=== PATIENT | female | born 1960 | race Caucasian/White ===

== ENCOUNTER 2020-06-12 09:32 | Outpatient (REF) | payer BC, SELFPAY ==
[2020-06-12 11:00] LABS: MANUAL DIFF FLAG NO
[2020-06-12 11:11] LABS: Basophils Absolute Auto 0.1 X10*3/uL (0.0-0.2); Eosinophils Absolute Auto 0.3 X10*3/uL (0.0-0.4); Eosinophils Percent Auto 5.9 % (0-4); Hematocrit 38.9 % (37-47); Hemoglobin 12.7 g/dl (12.0-16.0); Imm Gran Abs Auto 0.01 X10*3/uL (0.00-0.03); Imm Gran Pct Auto 0.2 % (0.0-0.4); Lymphocytes Absolute Auto 1.3 X10*3/uL (1.2-4.9); Lymphocytes Percent Auto 25.1 % (20-40); Mean Corpuscular HGB Conc 32.6 g/dl (31.0-35.0); Mean Corpuscular Hemoglobin 30.3 pg (27.0-33.0); Mean Corpuscular Volume 92.8 fL (80-98); Mean Platelet Volume 10.9 fL (9.4-12.3); Monocytes Absolute Auto 0.7 X10*3/uL (0.1-1.2); Neutrophils Absolute Auto 2.8 X10*3/uL (2.0-8.3); Neutrophils Percent Auto 54.8 % (45-73); Platelet Count 232 X10*3/uL (160-400); Red Blood Count 4.19 X10*6/uL (4.20-5.50); White Blood Count 5.1 X10*3/uL (4.8-10.8)
[2020-06-12 11:37] LABS: Alanine Aminotransferase 13 U/L (0-31); Anion Gap 13 (12-20); Aspartate Amino Transferase 14 U/L (5-31); Blood Urea Nitrogen 20 mg/dL (9-16); Calcium 9.4 mg/dL (8.4-10.2); Carbon Dioxide 27 mmol/L (22-29); Chloride 104 mmol/L (96-108); Cholesterol 155 mg/dL; Estimated Glomerular Filt Rate > 60; Glucose Fasting 102 mg/dL (60-99); HDL Cholesterol 62 mg/dL; LDL Cholesterol Calculated 82 mg/dl; Sodium 140 mmol/L (135-145); Triglycerides 59 mg/dL
[2020-06-12 11:47] LABS: Vitamin D 25-OH Total 29.9 ng/mL (>30)
== END 2020-06-12 09:33 | disposition home or self-care (01) ==
LOC: HO.HMGCLDS 09:32
PROVIDERS: PCP Internal Medicine; Visit Provider Internal Medicine
DX: Z00.01 Encounter for general adult medical examination with abnormal findings (principal); Z78.0 Asymptomatic menopausal state; G43.009 Migraine without aura, not intractable, without status migrainosus; G47.00 Insomnia, unspecified; I10 Essential (primary) hypertension
CPT/HCPCS: 36415; 80048; 80061; 82306; 84450; 84460; 85025

== ENCOUNTER 2020-06-27 16:58 | Outpatient (REF) | payer BC, SELFPAY ==
--- NOTE | 2020-06-27 | MM_ITS ---
EXAMINATION: MM SCREENING DIGITAL BREAST TOMOSYNTHESIS, BILATERAL CLINICAL INFORMATION: Screening. Asymptomatic. The lifetime risk of breast cancer based on the Tyrer-Cuzick Model is 5%. COMPARISON: Mammography: 03/22/2019, 03/13/2018, 03/03/2017 TECHNIQUE: Digital breast tomosynthesis is performed in both the craniocaudal and mediolateral oblique views along with computer-aided detection (CAD). Synthesized 2D images are generated from the tomosynthesis. FINDINGS: The breasts are heterogeneously dense, which may obscure small masses (ACR BI-RADS breast composition Category c). There are no significant masses, abnormal calcifications, or other abnormalities. There are incidental benign grouped dermal calcifications overlying right breast 4:00 position. MM/MM tomosynthesis screening BI IMPRESSION: No mammographic evidence of malignancy. ASSESSMENT: BI-RADS 2: Benign RECOMMENDATION: Routine annual mammography screening. This patient's information was entered into a reminder system with a target due date for their next mammogram.
== END 2020-06-27 16:59 | disposition home or self-care (01) ==
LOC: HO.MAMMO 16:58
PROVIDERS: PCP Internal Medicine; Visit Provider Internal Medicine
DX: Z12.31 Encounter for screening mammogram for malignant neoplasm of breast (principal)
CPT/HCPCS: 77063; 77067

== ENCOUNTER 2021-03-17 | Outpatient (REF) | payer BC, SELFPAY ==
[2021-03-19 11:14] LABS: OBS Int Ctl Valid YES; OBS1 NEGATIVE (NEGATIVE); OBS2 NEGATIVE (NEGATIVE); OBS3 NEGATIVE (NEGATIVE)
== END 2021-03-17 00:01 | disposition home or self-care (01) ==
LOC: HO.LNP
PROVIDERS: Visit Provider Internal Medicine Gastroenterology
DX: R13.10 Dysphagia, unspecified (principal); R10.13 Epigastric pain
CPT/HCPCS: 82270

== ENCOUNTER 2021-03-18 10:04 | Outpatient (REF) | payer BC, SELFPAY | END 2021-03-18 10:05 | disposition home or self-care (01) | LOC: HO.10HDLNP 10:04 | PROVIDERS: Visit Provider Internal Medicine Gastroenterology | DX: Z13.89 Encounter for screening for other disorder (principal) ==

== ENCOUNTER 2021-03-19 09:58 | Outpatient (REF) | payer BC, SELFPAY ==
--- NOTE | ~2021-03-19 | FL_ITS ---
EXAMINATION: FL BARIUM SWALLOW CLINICAL INFORMATION: Dysphagia and epigastric pain COMPARISON: None TECHNIQUE: Barium swallow examination is performed using fluoroscopic evaluation in addition to multiple fluoroscopic spot views. The patient is imaged both upright and prone and using both thick and thin sulfate along with effervescent granules. Barium tablet was also administered. Fluoroscopy time: 1.2 minutes DAP: 3.6 Gycm2 Images: 54 FINDINGS: The swallowing mechanism is normal. No aspiration or penetration is seen. Esophageal motility is normal. There is mucosal irregularity of the esophagus suggestive of esophagitis. The barium tablet passed quickly into the stomach. No mass or hernia is seen. There is mild gastroesophageal reflux. FL/FL barium swallow IMPRESSION: Mucosal irregularity of the esophagus suggestive of esophagitis. Mild gastroesophageal reflux.
== END 2021-03-19 09:59 | disposition home or self-care (01) ==
LOC: HO.XRAY 09:58
PROVIDERS: Visit Provider Internal Medicine Gastroenterology
DX: R13.19 Other dysphagia (principal); R10.13 Epigastric pain
CPT/HCPCS: 74220; 87338

== ENCOUNTER 2021-06-29 12:51 | Outpatient (REF) | payer BC, SELFPAY ==
--- NOTE | ~2021-06-29 | MM_ITS ---
EXAMINATION: MM SCREENING DIGITAL BREAST TOMOSYNTHESIS, BILATERAL CLINICAL INFORMATION: Screening. Asymptomatic. The lifetime risk of breast cancer based on the Tyrer-Cuzick Model is 5%. COMPARISON: Mammography: 06/27/2020, 03/22/2019, 03/13/2018 TECHNIQUE: Digital breast tomosynthesis is performed in both the craniocaudal and mediolateral oblique views along with computer-aided detection (CAD). Synthesized 2D images are generated from the tomosynthesis. FINDINGS: The breasts are heterogeneously dense, which may obscure small masses (ACR BI-RADS breast composition Category c). There are no significant masses, abnormal calcifications, or other abnormalities. There are benign grouped dermal calcifications again noted mid 4:00 right breast. The axilla are unremarkable. Skin contours are smooth. MM/MM tomosynthesis screening BI IMPRESSION: No mammographic evidence of malignancy. ASSESSMENT: BI-RADS 2: Benign RECOMMENDATION: Routine annual mammography screening. This patient's information was entered into a reminder system with a target due date for their next mammogram.
== END 2021-06-29 12:52 | disposition home or self-care (01) ==
LOC: HO.MAMMO 12:51
PROVIDERS: Visit Provider Internal Medicine
DX: Z12.31 Encounter for screening mammogram for malignant neoplasm of breast (principal)
CPT/HCPCS: 77063; 77067

== ENCOUNTER 2021-09-25 08:49 | Outpatient (REF) | payer BC, SELFPAY ==
[2021-09-25 11:19] LABS: MANUAL DIFF FLAG NO
[2021-09-25 11:36] LABS: Basophils Percent Auto 0.5 % (0-2); Eosinophils Absolute Auto 0.2 X10*3/uL (0.0-0.4); Eosinophils Percent Auto 2.5 % (0-4); Hematocrit 42.5 % (37.0-47.0); Hemoglobin 13.6 g/dl (12.0-16.0); Imm Gran Abs Auto 0.02 X10*3/uL (0.00-0.03); Imm Gran Pct Auto 0.3 % (0.0-0.4); Lymphocytes Absolute Auto 1.7 X10*3/uL (1.2-4.9); Lymphocytes Percent Auto 27.6 % (20-40); Mean Corpuscular Hemoglobin 29.6 pg (27.0-33.0); Mean Corpuscular Volume 92.6 fL (80.0-98.0); Mean Platelet Volume 10.7 fL (9.4-12.3); Monocytes Absolute Auto 0.6 X10*3/uL (0.1-1.2); Neutrophils Absolute Auto 3.7 x10*3/uL (2.0-8.3); Neutrophils Percent Auto 60.1 % (45-73); Platelet Count 320 X10*3/uL (160-400); Red Blood Count 4.59 X10*6/uL (4.20-5.50); Red Cell Distribution Width 13.1 % (11.0-16.0); White Blood Count 6.1 X10*3/uL (4.8-10.8)
[2021-09-25 12:07] LABS: Alanine Aminotransferase 18 U/L (0-31); Anion Gap 14 (12-20); Aspartate Amino Transferase 16 U/L (5-31); Blood Urea Nitrogen 18 mg/dL (9-16); Carbon Dioxide 27 mmol/L (22-29); Chloride 105 mmol/L (96-108); Cholesterol 194 mg/dL; Estimated Glomerular Filt Rate > 60; Glucose Fasting 101 mg/dL (60-99); HDL Cholesterol 70 mg/dL; LDL Cholesterol Calculated 108 mg/dl; Potassium 4.5 mmol/L (3.3-5.1); Sodium 141 mmol/L (135-145); Triglycerides 80 mg/dL
[2021-09-25 12:08] LABS: Vitamin D 25-OH Total 21.7 ng/mL (>30)
[2021-09-26 21:13] LABS: Lyme Blot 4.76 index
[2021-10-01 09:05] LABS: Lyme Abs Screen POSITIVE
[2021-10-01 16:01] LABS: 18 KD (IgG) Band REACTIVE; 23 KD (IgG) Band REACTIVE; 23 KD (IgM) Band REACTIVE; 28 KD (IgG) Band NON-REACTIVE; 30 KD (IgG) Band NON-REACTIVE; 39 KD (IgM) Band NON-REACTIVE; 41 KD (IgM) Band REACTIVE; 45 KD (IgG) Band NON-REACTIVE; 58 KD (IgG) Band NON-REACTIVE; 66 KD (IgG) Band NON-REACTIVE; 93 KD (IgG) Band NON-REACTIVE; Lyme IgG Blot Interp NEGATIVE (NEGATIVE); Lyme IgM Blot Interp POSITIVE (NEGATIVE)
== END 2021-09-25 08:50 | disposition home or self-care (01) ==
LOC: HO.HMGCLDS 08:49
PROVIDERS: Visit Provider Internal Medicine
DX: Z00.00 Encounter for general adult medical examination without abnormal findings (principal); G43.009 Migraine without aura, not intractable, without status migrainosus; G47.00 Insomnia, unspecified; R73.01 Impaired fasting glucose; T14.8XXA Other injury of unspecified body region, initial encounter; W57.XXXA Bitten or stung by nonvenomous insect and other nonvenomous arthropods, initial encounter; Z78.0 Asymptomatic menopausal state
CPT/HCPCS: 36415; 80048; 80061; 82306; 84450; 84460; 85025; 86617; 86618

== ENCOUNTER 2022-07-05 07:17 | Outpatient (REF) | payer BC, SELFPAY ==
--- NOTE | ~2022-07-05 | MM_ITS ---
EXAMINATION: MM SCREENING DIGITAL BREAST TOMOSYNTHESIS, BILATERAL CLINICAL INFORMATION: Screening. Asymptomatic. COMPARISON: Mammography: 06/29/2021, 06/27/2020, 03/22/2019 TECHNIQUE: Digital breast tomosynthesis is performed in both the craniocaudal and mediolateral oblique views along with computer-aided detection (CAD). Synthesized 2D images are generated from the tomosynthesis. FINDINGS: The breasts are heterogeneously dense, which may obscure small masses (ACR BI-RADS breast composition Category c). There are no significant masses, abnormal calcifications, or other abnormalities. No developing density or architectural abnormality. There are grouped benign dermal calcifications again seen mid 4:00 right breast. The axilla are unremarkable. No skin evidence changes. MM/MM tomosynthesis screening BI IMPRESSION: No mammographic evidence of malignancy. ASSESSMENT: BI-RADS 2: Benign RECOMMENDATION: Routine annual mammography screening. This patient's information was entered into a reminder system with a target due date for their next mammogram.
--- NOTE | ~2022-07-05 | MM_ITS ---
EXAMINATION: BONE DENSITOMETRY CLINICAL INDICATION: Menopause. COMPARISON: Previous BD dated 03/13/2018 and baseline BD dated 08/11/2006. TECHNIQUE: Using a [employer] DXA System (software version: 13.1) manufactured by [employer], dual-energy x-ray absorptiometry was performed of the lumbar spine and left hip. The images are of good technical quality. Summary results are attached. FINDINGS: AP SPINE L1-L4: Current: BMD 1.107 g/cm2, Z-score 0.7, T-score -0.6, normal, 4.2% decrease from previous, 15.4% decrease from baseline (<5% change is not significant). Prior: BMD 1.156 g/cm2. Baseline: BMD 1.309 g/cm2. LEFT FEMUR, NECK: Current: BMD 0.826 g/cm2, Z-score -0.3, T-score -1.5, osteopenia. Prior: BMD 0.935 g/cm2. Baseline: BMD 1.029 g/cm2. LEFT FEMUR, TOTAL: Current: BMD 0.887 g/cm2, Z-score 0.0, T-score -1.0, normal, 6.2% decrease from previous, 18.2% decrease from baseline (<5% change is not significant). Prior: BMD 0.946 g/cm2. Baseline: BMD 1.085 g/cm2. IDENTIFIED RISK FACTORS: Early menopause, family history (parent hip fracture), bilateral oophorectomy, glucocorticoids (chronic), height loss, history of fracture (adult), hysterectomy, secondary osteoporosis. HISTORY OF FRACTURE: Wrist, ankle. MEDICATIONS: Vitamin D. MM/XR DEXA axial skeleton IMPRESSION: 1. DIAGNOSIS: Osteopenia based on the lowest T-score value of -1.5 in the femoral neck applying World Health Organization criteria. 2. 10-YEAR FRACTURE RISK PREDICTION, FRAX: Major osteoporotic fracture (clinical spine, forearm, hip or shoulder) 39.2%. Hip fracture 3.0%. 3. Treatment Recommendations: NOF guidelines recommend consideration for treatment in postmenopausal women and men age 50 and older presenting with the following: -A hip or vertebral (clinical or morphometric) fracture. -T-score less than or equal to -2.5 at the femoral neck or spine after appropriate evaluation to exclude secondary causes. -Low bone mass at the hip or spine and a 10-year fracture probability by FRAX of greater than or equal to 3% for hip fracture or greater than or equal to 20% for major osteoporotic fracture based on the [place] adapted WHO algorithm. 4. Other Recommendations: All treatment decisions require clinical judgment and consideration of individual patient factors, including patient preferences, comorbidities, previous drug use, risk factors not captured in the FRAX model (e.g. frailty, falls, vitamin D deficiency, increased bone turnover, interval significant decline in bone density) and possible under or overestimation of fracture risk by FRAX. Additional medical evaluation for secondary cause of low bone mineral density may be appropriate. FUTURE SCAN RECOMMENDATION: People with diagnosed cases of osteoporosis or at high risk for fracture should have regular bone mineral density tests. For patients eligible for Medicare, routine testing is allowed once every 2 years. The testing frequency can be increased to one year for patients who have rapidly progressing disease, those who are receiving or discontinuing medical therapy to restore bone mass, or have additional risk factors.
== END 2022-07-05 07:18 | disposition home or self-care (01) ==
LOC: HO.MAMMO 07:17
PROVIDERS: PCP Internal Medicine; Visit Provider Internal Medicine
DX: Z12.31 Encounter for screening mammogram for malignant neoplasm of breast (principal); Z13.820 Encounter for screening for osteoporosis; Z78.0 Asymptomatic menopausal state
CPT/HCPCS: 77063; 77067; 77080

== ENCOUNTER 2022-09-30 12:14 | Outpatient (REF) | payer BC, SELFPAY ==
--- NOTE | ~2022-09-30 | XR_ITS ---
EXAMINATION: XR LUMBOSACRAL SPINE WITH OBLIQUES CLINICAL INFORMATION: Low back pain COMPARISON: None TECHNIQUE: AP, both oblique, and lateral views of the lumbar spine. Lateral view of the lumbosacral junction. FINDINGS: The vertebral bodies and posterior elements are normal. The disc spaces are preserved and the vertebral alignment is normal. There are postsurgical changes anterior L4-L5 disc level likely vascular. Otherwise rest of the visualized prevertebral and paravertebral soft tissues are normal. There is mild constipation. XR/XR lumbar spine 4V min IMPRESSION: Unremarkable lumbar spine examination.
[2022-09-30 14:43] LABS: Alanine Aminotransferase 16 U/L (0-31); Anion Gap 12 (12-20); Aspartate Amino Transferase 16 U/L (5-31); Blood Urea Nitrogen 19 mg/dL (9-16); Calcium 9.7 mg/dL (8.4-10.2); Carbon Dioxide 28 mmol/L (22-29); Chloride 105 mmol/L (96-108); Cholesterol 191 mg/dL; Estimated Glomerular Filt Rate > 60; Glucose Fasting 108 mg/dL (60-99); HDL Cholesterol 62 mg/dL; LDL Cholesterol Calculated 112 mg/dl; Potassium 4.3 mmol/L (3.3-5.1); Sodium 141 mmol/L (135-145); Triglycerides 86 mg/dL
[2022-09-30 15:00] LABS: Vitamin D 25-OH Total 37.7 ng/mL (>30)
[2022-10-02 08:58] LABS: CA-125 8 U/mL (<35)
== END 2022-09-30 12:15 | disposition home or self-care (01) ==
LOC: HO.HMGCX 12:14
PROVIDERS: Visit Provider Internal Medicine
DX: Z00.01 Encounter for general adult medical examination with abnormal findings (principal); M54.50 Low back pain, unspecified; R73.01 Impaired fasting glucose; Z78.0 Asymptomatic menopausal state; Z85.43 Personal history of malignant neoplasm of ovary
CPT/HCPCS: 36415; 72110; 80048; 80061; 82306; 84450; 84460; 86304

== ENCOUNTER 2023-07-11 07:22 | Outpatient (REF) | payer BC, SELFPAY ==
--- NOTE | ~2023-07-11 | MM_ITS ---
EXAMINATION: MM SCREENING DIGITAL BREAST TOMOSYNTHESIS, BILATERAL CLINICAL INFORMATION: Screening. Asymptomatic. COMPARISON: Mammography: 07/05/2022, 06/29/2021, 06/27/2020, 03/22/2019 TECHNIQUE: Digital breast tomosynthesis is performed in both the craniocaudal and mediolateral oblique views along with computer-aided detection (CAD). Synthesized 2D images are generated from the tomosynthesis. FINDINGS: The breasts are heterogeneously dense, which may obscure small masses (ACR BI-RADS breast composition Category c). Dermal calcifications again noted medial right breast, and lateral left breast. There are no suspicious masses, suspicious grouped calcifications, or areas of architectural distortion in either breast. The parenchymal pattern is stable from prior exams. MM/MM tomosynthesis screening BI IMPRESSION: No mammographic evidence of malignancy. Stable benign findings. ASSESSMENT: BI-RADS BI-RADS 2 - Benign Findings RECOMMENDATION: Routine annual mammography screening. 1 year F/U This examination should not preclude the clinical evaluation of a suspicious palpable abnormality. This patient's information was entered into a reminder system with a target due date for their next mammogram.
== END 2023-07-11 07:23 | disposition home or self-care (01) ==
LOC: HO.MAMMO 07:22
PROVIDERS: PCP Internal Medicine; Visit Provider Internal Medicine
DX: Z12.31 Encounter for screening mammogram for malignant neoplasm of breast (principal)
CPT/HCPCS: 77063; 77067

== ENCOUNTER → 2023-07-11 07:30 | Outpatient (BNV) | payer BC, SELFPAY | PROVIDERS: PCP Internal Medicine; Visit Provider Radiology Diagnostic Radiology | DX: Z12.31 Encounter for screening mammogram for malignant neoplasm of breast (principal) | CPT/HCPCS: 77063; 77067 ==

== ENCOUNTER 2023-10-06 10:45 | Outpatient (AMB) | payer BC, SELFPAY ==
--- NOTE | 2023-10-06 11:25 | MHC.PC.OV ---
Vital Signs 10/06/23 11:29 Height 5 ft 8.5 in Weight 157 lb BMI 23.5 BP 130/80 Blood Pressure Location Rt brachial Position Sitting Pulse 78 Pulse Source Pulse Oximeter Pulse Oximetry (%) 97 Oxygen Delivery Method Room Air Intake Visit Reasons: PE Intake Note: Pt is here today for her PE: Last mammogram is 07/11/23, bone density scan 07/05/22, colonoscopy 09/08/15 Allergies Surgivcal Tape Allergy (Unknown, Uncoded 10/06/23 11:42) Unknown Medication List - Last Reconciled 10/06/23 by Roxy Santiago MD alum-mag hydroxide-simeth 400-400-40 mg/5 mL (Liquid Antacid) 5 mL PO QID PRN cholecalciferol (vitamin D3) 50 mcg PO DAILY omeprazole mg PO sumatriptan succinate 100 mg PO DAILY PRN Tobacco use date assessed: 10/06/23 Fall risk assessment: No Falls in past year Last assessed Fall Risk: 10/06/23 Dental Screening Dental Screen Date: 10/06/23 Did you have a dental visit in the last 12 months?: Yes Did you have a dental problem in the last 6 months where you did not have access to dental care?: No Was dental information given to patient?: Patient has dentist HPI PE HPI Details 63-year-old lady here today for physical exam. Up-to-date with her mammogram done last 07/11/23, bone density scan 07/05/22 which showed presence of osteopenia left femoral neck, normal in lumbar spine and left femur, and screening colonoscopy 09/08/15 showed normal findings except for hemorrhoids. Has migraine headaches, currently stable controlled on present treatment, needs refills on her sumatriptan prescription. She has been having difficulty sleeping at night, and maintaining sleep, frequently worries about different things. Has tried pcln-dra-[id number] sleep aids all of which has not helped. [facility] Medical History (Updated 10/20/23 @ 01:47 by Roxy Santiago MD) Osteopenia of left femoral neck Lumbago Hx of ovarian cancer Impaired fasting glucose Insect bite Migraine without aura and without status migrainosus, not intractable Menopause Insomnia Clear cell carcinoma of ovary Surgical History History of total abdominal hysterectomy and bilateral salpingo-oophorectomy History of deviated nasal septum History of facial surgery History of tubal ligation History of appendectomy Family History (Updated 10/06/23 @ 12:01 by Roxy Santiago MD) Father HTN (hypertension) Myocardial infarct CAD (coronary artery disease) Substance use disorder Mother Osteoporosis PUD (peptic ulcer disease) Gallbladder cancer Leukemia Daughter Asthma Bronchiectasis Brother CLL (chronic lymphocytic leukemia) Sister Throat cancer Lung cancer Maternal Grandmother Diabetes mellitus Social History Housing: House Alcohol intake: never Patient Tobacco Use Status: Never used Tobacco e-Cigarette/Vaping Use: Never Used service: No Current occupational status: retired Cognitive needs: No Hearing needs: No Vision needs: Yes Questionnaire PHQ-9 Over the last 2 weeks, how often have you been bothered by any of the following problems? 1. Little interest or pleasure in doing things: not at all 2. Feeling down, depressed, or hopeless: not at all 3. Trouble falling or staying asleep, or sleeping too much: nearly every day 4. Feeling tired or having little energy: not at all 5. Poor appetite or overeating: not at all 6. Feeling bad about yourself - or that you are a failure or have let yourself or your family down: not at all 7. Trouble concentrating on things, such as reading the newspaper or watching television: not at all 8. Moving or speaking so slowly that other people could have noticed. Or the opposite - being so fidgety or restless that you have been moving around a lot more than usual: not at all 9. Thoughts that you would be better off or of hurting yourself in some way: not at all Total score: 3 Depression Screening Interpretation: Negative Depression Screening Done: Yes [id number] - PHQ-9 Billing: Yes Source: Developed by Drs. Deepak Tobar, Yesica Roy, Darren Valdez and colleagues, with an educational dorys from [employer]. Thrive Questionnaire Date Thrive assessed: 10/06/23 I am a: Patient What is your living situation today?: I have a steady place to live Within the past 12 months, did the food you bought not last and you didn't have the money to get more?: Never true Within the past 12 months, did you worry whether your food would run out before you got money to buy more?: Never true Do you have trouble paying for medicines?: No Do you have trouble getting transportation to medical appointments?: No Do you have trouble paying your heating and electricity bill?: No Do you have trouble taking care of your child, family member or friend?: No Are you currently unemployed and looking for a job?: No Are you interested in more education?: No Please select the resources that you would like help with: Food THRIVE Score: 0 AUDIT C Alcohol Use Questionnaire (AUDIT-C) 1. How often do you have a drink containing alcohol?: Never Total Score: 0 RUIZ-7 AMB Questionnaire RUIZ-7 Date RUIZ - 7 assessed: 10/06/23 Feeling nervous, anxious, or on edge: 1 = Several days Not being able to stop or control worryin = Several days Worrying too much about different things: 1 = Several days Trouble relaxin = Not at all Being so restless that it is hard to sit still: 0 = Not at all Becoming easily annoyed or irritable: 0 = Not at all Feeling afraid as if something awful might happen: 1 = Several days Total RUIZ-7 score (0-4 normal; 5-9 mild; 10-14 moderate; 15-21 severe): 4 Source: Developed by Drs. Deepak Tobar, Yesica Roy, Darren Valdez and colleagues, with an educational dorys from [employer]. RUIZ-7 Assessment Billing RUIZ-7 Assessment Tool: RUIZ-7 Assessment 83392 Review of Systems Const Denies fatigue, Denies fever(s), Denies headache(s) and Denies weakness Eyes Denies change in vision ENT Reports Normal hearing present, Denies dizziness, Denies headache(s), Denies nasal congestion, Denies nasal discharge and Denies sore throat Card Denies chest pain, Denies lightheadedness, Denies palpitations and Denies dyspnea Resp Denies chest congestion, Denies cough, Denies dyspnea and Denies wheezing GI Denies abdominal pain, Denies change in bowel habits and Denies heartburn Denies urinary frequency, Denies dysuria and Denies urinary urgency Musc Reports no additional complaints Skin/Breast Denies lesions and Denies rash Neuro Reports Normal hearing present, Denies dizziness, Denies headache(s), Denies Sensory deficit (Neuro) and Denies weakness Psych Reports as per HPI Endo Denies fatigue, Denies polydipsia, Denies polyuria and Denies palpitations Haroon/Lymph Denies easy bruising Aller/Immun Denies seasonal rhinorrhea and Denies wheezing Physical exam (Primary Care) Vital Signs: Last Vital Signs Pulse 78 10/06/23 11:29 BP 130/80 10/06/23 11:29 Pulse Ox 97 10/06/23 11:29 Oxygen Delivery Method Room Air 10/06/23 11:29 BMI result Body Mass Index 23.5 Tobacco/Smoking Status: Tobacco use Status Tobacco use date assessed 10/06/23 10/06/23 11:28 Patient Tobacco Use Status Never used Tobacco 10/06/23 11:25 e-Cigarette/Vaping Use Never Used 10/06/23 11:25 PHQ-9: PHQ-9 Score PHQ-9: Total score 4 10/06/23 12:17 Depression Screening Interpretation: Negative Thrive Assessment: Date of Thrive Assessment Date Thrive assessed 10/06/23 10/06/23 11:32 Advance Care Planning discussion: Exists, not on file Const General: cooperative, healthy appearing, no acute distress and alert Orientation/consciousness: patient oriented x3 HENMT Head: Yes normal to inspection, Yes normocephalic and Yes atraumatic Ears: external ears normal, TM's normal bilaterally and EAC's normal General nose exam: Normal external nose present, Normal nasal mucous membranes and turbinates present and No nasal discharge present Face and sinus: Yes face symmetric Mouth: Normal oral and palatal mucosa present, tongue normal and moist mucous membranes Eyes Conjunctivae: conjunctivae normal Sclerae: sclerae normal Pupils: Equal, round and reactive pupils present EOM: EOMs intact bilaterally Neck Neck: Yes full ROM and Yes no lymphadenopathy Thyroid: Thyroid normal Lymphatic: no lymphadenopathy noted Chest Chest palpation & inspection: normal inspection of the chest Breast/axilla palpation: normal palpation of the breasts Resp Effort & Inspection: normal respiratory effort and able to speak in complete sentences Auscultation: clear to auscultation bilaterally Cardio Jugular venous distension: no JVD Rate: regular rate Rhythm: regular rhythm Heart sounds: S1 normal heart sound present and S2 normal heart sound present GI Inspection: Yes normal to inspection Palpation (GI): Soft to palpation, nontender, no guarding and no masses Auscultation: normal bowel sounds General: Yes deferred Back/Spine/Pelvis Thoracic/Lumbar Spine: thoraco-lumbar ROM normal, straight leg raise negative bilaterally and No paraspinal muscle tenderness Skin General skin exam: no rashes or lesions noted Neuro General: patient oriented x3, gait normal, moves all extremities, no focal motor deficits and CN's II-XI intact bilaterally Cranial nerves: Yes Equal, round and reactive pupils present and Yes Normal hearing present Cognition (Neuro): normal cognition Gait exam (Neuro): Normal gait present Motor exam (neuro): 5/5 motor strength present throughout Sensory Exam: No Sensory deficit (Neuro) Extrem General: Yes normal to inspection, Yes full ROM, Yes no pedal edema and Yes normal gait Psych Appearance: grossly normal and well kempt Mental Status: mental status grossly normal Speech and movement: Normal speech and movement present Affect: normal affect Attitude: cooperative Thought process: Normal thought process present Thought content: Normal thought content present Immunizations pneumoc 20-vitaliy conj-dip cr(PF) 0.5 mL IM syringe Performing Provider: Roxy Santiago MD Performing Location: [facility] Administered by: Carrie Pham CMA on 10/06/23 12:17 Dose Route Admin Location Dispensed Lot Number Expiration Date NDC Can Machine Operator 0.5 mL IM Left Deltoid 0.5 mL [id number] 05/01/24 7940-2090-13 [employer] VIS Given Date VIS Provided VIS Publication Date 10/06/23 Single Vaccine 21 Eligibility Eligibility Date Funding Source Not [facility] Eligible 10/06/23 Private Assessment and Plan Assessment & Plan (1) Osteopenia of left femoral neck: Comment: Seen on bone density scan done July 05, 2022, with a T-score -1.5 Code(s): M85.852 - Other specified disorders of bone density and structure, left thigh Plan: Repeat bone density scan ordered, continue doing regular weight-bearing exercise, take adequate calcium from dietary sources and taking vitamin-D 3 supplements 50 mcg daily. (2) Impaired fasting glucose: Code(s): R73.01 - Impaired fasting glucose Plan: Your fasting blood sugars elevated above 100 mg/dL. Impaired glucose metabolism O2 at risk for developing diabetes mellitus type 2, as well as heart attack and stroke later on. Lifestyle changes at just weight loss, healthy eating habits, and regular exercise are important, and can prevent the progression to diabetes (3) Migraine without aura and without status migrainosus, not intractable: Code(s): G43.009 - Migraine without aura, not intractable, without status migrainosus Plan: Refill prescription sent for sumatriptan 100 mg per tablet, to take as needed for migraine headaches. (4) Insomnia: Code(s): G47.00 - Insomnia, unspecified Qualifiers: Insomnia type: primary Qualified Code(s): F51.01 - Primary insomnia Plan: Will try and trazodone 50 mg per tablet to take at bedtime as needed for any difficulty sleeping. (5) Annual visit for general adult medical examination with abnormal findings: Code(s): Z00.01 - Encounter for general adult medical examination with abnormal findings Plan: Will check appropriate labs. Recommended dental visit every 6 months and regular eye exams, at least every 2 years. Take adequate calcium in diet and vitamin-D 3 at 2000 IU per cap once a day, in addition to weight-bearing exercises to help maintain good muscle tone and weight control. Instructed to do self-breast exam, and continue to get yearly mammogram. Due for colonoscopy again in 2025. Up-to-date with all her vaccinations except for her 2nd dose of Shingrix vaccinend Prevnar 20 which was given today (6) Need for pneumococcal 20-valent conjugate vaccination: Code(s): Z23 - Encounter for immunization Plan: Prevnar 20 given today Orders: Orders Complete Blood Count Auto Diff 10/06/23 M85.852 - Other specified disorders of bone density and structure, left thigh, Z78.0 - Asymptomatic menopausal state, Z00.01 - Encounter for general adult medical examination with abnormal findings, R73.01 - Impaired fasting glucose, G43.009 - Migraine without aura, not intractable, without status migrainosus, G47.00 - Insomnia, unspecified Lipid Panel 10/06/23 M85.852 - Other specified disorders of bone density and structure, left thigh, Z78.0 - Asymptomatic menopausal state, Z00.01 - Encounter for general adult medical examination with abnormal findings, R73.01 - Impaired fasting glucose, G43.009 - Migraine without aura, not intractable, without status migrainosus, G47.00 - Insomnia, unspecified Pneumococcal 20 Immunization 10/06/23 Z23 - Encounter for immunization XR DEXA axial skeleton 07/16/24 M85.852 - Other specified disorders of bone density and structure, left thigh, Z78.0 - Asymptomatic menopausal state Alanine Aminotransferase 10/06/23 M85.852 - Other specified disorders of bone density and structure, left thigh, Z78.0 - Asymptomatic menopausal state, Z00.01 - Encounter for general adult medical examination with abnormal findings, R73.01 - Impaired fasting glucose, G43.009 - Migraine without aura, not intractable, without status migrainosus, G47.00 - Insomnia, unspecified Aspartate Amino Transferase 10/06/23 M85.852 - Other specified disorders of bone density and structure, left thigh, Z78.0 - Asymptomatic menopausal state, Z00.01 - Encounter for general adult medical examination with abnormal findings, R73.01 - Impaired fasting glucose, G43.009 - Migraine without aura, not intractable, without status migrainosus, G47.00 - Insomnia, unspecified Basic Metabolic Panel Fasting 10/06/23 M85.852 - Other specified disorders of bone density and structure, left thigh, Z78.0 - Asymptomatic menopausal state, Z00.01 - Encounter for general adult medical examination with abnormal findings, R73.01 - Impaired fasting glucose, G43.009 - Migraine without aura, not intractable, without status migrainosus, G47.00 - Insomnia, unspecified Hemoglobin A1c 10/06/23 M85.852 - Other specified disorders of bone density and structure, left thigh, Z78.0 - Asymptomatic menopausal state, Z00.01 - Encounter for general adult medical examination with abnormal findings, R73.01 - Impaired fasting glucose, G43.009 - Migraine without aura, not intractable, without status migrainosus, G47.00 - Insomnia, unspecified Vitamin D 25-OH Total 10/06/23 M85.852 - Other specified disorders of bone density and structure, left thigh, Z78.0 - Asymptomatic menopausal state, Z00.01 - Encounter for general adult medical examination with abnormal findings, R73.01 - Impaired fasting glucose, G43.009 - Migraine without aura, not intractable, without status migrainosus, G47.00 - Insomnia, unspecified Medications: New trazodone 50 mg PO BEDTIME PRN 30 tabs 0RF sleep Refilled sumatriptan succinate 100 mg PO DAILY PRN 20 tabs 4RF migraine Coding Level of Care Code Est Pt Prev Care >65y(17612) Diagnoses Osteopenia of left femoral neck M85.852 Impaired fasting glucose R73.01 Migraine without aura and without status migrainosus, not intractable G43.009 Primary insomnia F51.01 Insomnia type: primary Annual visit for general adult medical examination with abnormal findings Z00.01 Need for pneumococcal 20-valent conjugate vaccination Z23 Additional Codes RUIZ-7 Assessment Billing - RUIZ-7 Assessment Tool: RUIZ-7 Assessment [id number] ([id number]) Vital Signs *Quality* - Advance Care Planning discussion: Exists, not on file ([id number])
[2023-10-06 11:29] VITALS: BP 130/80; PULSE 78; O2SAT 97; BMI 23.5
== END 2023-10-06 12:18 | disposition home or self-care (01) ==
PROVIDERS: Visit Provider Internal Medicine
DX: Z00.01 Encounter for general adult medical examination with abnormal findings (principal); F51.01 Primary insomnia; M85.852 Other specified disorders of bone density and structure, left thigh; Z23 Encounter for immunization; R73.01 Impaired fasting glucose; G43.009 Migraine without aura, not intractable, without status migrainosus
CPT/HCPCS: 1123F; 90471; 90677; 99213; 99397

== ENCOUNTER 2023-10-06 12:19 | Outpatient (REF) | payer BC, SELFPAY ==
[2023-10-06 16:19] LABS: MANUAL DIFF FLAG NO
[2023-10-06 16:59] LABS: Basophils Percent Auto 0.7 % (0-2); Eosinophils Absolute Auto 0.1 X10*3/uL (0.0-0.4); Eosinophils Percent Auto 1.8 % (0-4); Hematocrit 38.5 % (37.0-47.0); Hemoglobin 12.7 g/dl (12.0-16.0); Imm Gran Abs Auto 0.02 X10*3/uL (0.00-0.03); Imm Gran Pct Auto 0.3 % (0.0-0.4); Lymphocytes Absolute Auto 1.4 X10*3/uL (1.2-4.9); Lymphocytes Percent Auto 22.5 % (20-40); Mean Corpuscular Hemoglobin 29.9 pg (27.0-33.0); Mean Corpuscular Volume 90.6 fL (80.0-98.0); Mean Platelet Volume 10.7 fL (9.4-12.3); Monocytes Absolute Auto 0.5 X10*3/uL (0.1-1.2); Monocytes Percent Auto 7.5 % (2-11); Neutrophils Percent Auto 67.2 % (45-73); Platelet Count 294 X10*3/uL (160-400); Red Blood Count 4.25 X10*6/uL (4.20-5.50); Red Cell Distribution Width 12.9 % (11.0-16.0)
[2023-10-06 17:22] LABS: Alanine Aminotransferase 16 U/L (0-31); Anion Gap 15 (12-20); Aspartate Amino Transferase 16 U/L (5-31); Blood Urea Nitrogen 18 mg/dL (9-16); Calcium 9.8 mg/dL (8.4-10.2); Carbon Dioxide 25 mmol/L (22-29); Chloride 104 mmol/L (96-108); Cholesterol 171 mg/dL (<200); Estimated Glomerular Filt Rate > 60; Glucose Fasting 106 mg/dL (60-99); HDL Cholesterol 67 mg/dL (>40); LDL Cholesterol Calculated 93 mg/dL (<100); Potassium 3.8 mmol/L (3.3-5.1); Sodium 140 mmol/L (135-145); Triglycerides 58 mg/dL (<150)
[2023-10-06 17:27] LABS: Estimated Average Glucose 105 mg/dL; Hemoglobin A1c % 5.3 % (<6.0)
[2023-10-06 17:31] LABS: Vitamin D 25-OH Total 44.6 ng/mL (>30)
== END 2023-10-06 12:20 | disposition home or self-care (01) ==
LOC: HO.HMGCLDS 12:19
PROVIDERS: PCP Internal Medicine; Visit Provider Internal Medicine
DX: Z00.01 Encounter for general adult medical examination with abnormal findings (principal); M85.852 Other specified disorders of bone density and structure, left thigh; R73.01 Impaired fasting glucose; G43.009 Migraine without aura, not intractable, without status migrainosus; G47.00 Insomnia, unspecified; Z78.0 Asymptomatic menopausal state
CPT/HCPCS: 36415; 80048; 80061; 82306; 83036; 84450; 84460; 85025

== ENCOUNTER 2024-07-16 07:18 | Outpatient (REF) | payer BC, SELFPAY ==
--- NOTE | ~2024-07-16 | MM_ITS ---
EXAMINATION: MM SCREENING DIGITAL BREAST TOMOSYNTHESIS, BILATERAL CLINICAL INFORMATION: Screening. Asymptomatic. COMPARISON: Mammography: Comparison is made with available priors TECHNIQUE: Digital breast mammography with tomosynthesis is performed in both the craniocaudal and mediolateral oblique views along with computer-aided detection (CAD). FINDINGS: The breasts are heterogeneously dense, which may obscure small masses (ACR BI-RADS breast composition Category c). There are no significant masses, abnormal calcifications, or other abnormalities. MM/MM tomosynthesis screening BI IMPRESSION: No mammographic evidence of malignancy. ASSESSMENT: BI-RADS BI-RADS 1 - Negative RECOMMENDATION: Routine annual mammography screening. 1 year F/U This examination should not preclude the clinical evaluation of a suspicious palpable abnormality. This patient's information was entered into a reminder system with a target due date for their next mammogram. Electronically signed by: Kelly Voss DO 07/23/2024 01:03 PM SUNNY
--- NOTE | ~2024-07-16 | MM_ITS ---
EXAMINATION: BONE DENSITOMETRY CLINICAL INDICATION: Other specified disorders of bone density and structure. COMPARISON: Previous BD dated 07/05/2022 and baseline BD dated 08/11/2006. TECHNIQUE: Using a Gastro[employer] DXA System (software version: 13.1) manufactured by [employer], dual-energy x-ray absorptiometry was performed of the lumbar spine and left hip. The images are of good technical quality. Summary results are attached. FINDINGS: LEFT FEMUR, NECK: Current: BMD 0.855 g/cm2, Z-score 0.0, T-score -1.3, osteopenia. Prior: BMD 0.826 g/cm2. Baseline: BMD 1.029 g/cm2. LEFT FEMUR, TOTAL: Current: BMD 0.858 g/cm2, Z-score -0.1, T-score -1.2, osteopenia, 3.3% decrease from previous, 20.9% decrease from baseline (<5% change is not significant). Prior: BMD 0.887 g/cm2. Baseline: BMD 1.085 g/cm2. AP SPINE L1-L4: Current: BMD 1.121 g/cm2, Z-score 0.9, T-score -0.5, normal, 1.3% increase from previous, 14.4% decrease from baseline (<5% change is not significant). Prior: BMD 1.107 g/cm2. Baseline: BMD 1.309 g/cm2. IDENTIFIED RISK FACTORS: Early menopause, secondary osteoporosis, bilateral oophorectomy, hysterectomy, parental hip fracture, glucocorticoids, height loss. HISTORY OF FRACTURE: None listed. MEDICATIONS: None listed. MM/XR DEXA axial skeleton IMPRESSION: 1. DIAGNOSIS: Osteopenia based on the lowest T-score value of -1.3 in the femoral neck applying World Health Organization criteria. 2. 10-YEAR FRACTURE RISK PREDICTION, FRAX: Major osteoporotic fracture (clinical spine, forearm, hip or shoulder) 24.0%. Hip fracture 1.9%. 3. Treatment Recommendations: NOF guidelines recommend consideration for treatment in postmenopausal women and men age 50 and older presenting with the following: -A hip or vertebral (clinical or morphometric) fracture. -T-score less than or equal to -2.5 at the femoral neck or spine after appropriate evaluation to exclude secondary causes. -Low bone mass at the hip or spine and a 10-year fracture probability by FRAX of greater than or equal to 3% for hip fracture or greater than or equal to 20% for major osteoporotic fracture based on the [place] adapted WHO algorithm. 4. Other Recommendations: All treatment decisions require clinical judgment and consideration of individual patient factors, including patient preferences, comorbidities, previous drug use, risk factors not captured in the FRAX model (e.g. frailty, falls, vitamin D deficiency, increased bone turnover, interval significant decline in bone density) and possible under or overestimation of fracture risk by FRAX. Additional medical evaluation for secondary cause of low bone mineral density may be appropriate. FUTURE SCAN RECOMMENDATION: People with diagnosed cases of osteoporosis or at high risk for fracture should have regular bone mineral density tests. For patients eligible for Medicare, routine testing is allowed once every 2 years. The testing frequency can be increased to one year for patients who have rapidly progressing disease, those who are receiving or discontinuing medical therapy to restore bone mass, or have additional risk factors. Electronically signed by: Saroj Dumas MD 07/16/2024 09:18 AM SUNNY BOND
== END 2024-07-16 07:19 | disposition home or self-care (01) ==
LOC: HO.MAMMO 07:18
PROVIDERS: PCP Internal Medicine; Visit Provider Internal Medicine
DX: Z12.31 Encounter for screening mammogram for malignant neoplasm of breast (principal); Z13.820 Encounter for screening for osteoporosis; Z78.0 Asymptomatic menopausal state; M85.852 Other specified disorders of bone density and structure, left thigh
CPT/HCPCS: 77063; 77067; 77080

== ENCOUNTER → 2024-07-16 07:30 | Outpatient (BNV) | payer BC, SELFPAY | PROVIDERS: PCP Internal Medicine; Visit Provider Internal Medicine | DX: Z12.31 Encounter for screening mammogram for malignant neoplasm of breast (principal) | CPT/HCPCS: 77063; 77067 ==

== ENCOUNTER 2024-10-18 08:19 | Outpatient (AMB) | payer BC, MEDICARE, SELFPAY ==
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
--- NOTE | 2024-10-18 09:10 | A.OFFPC_ITS ---
Vital Signs 10/18/24 09:18 Height 5 ft 8.5 in Weight 156 lb BMI 23.4 BP 148/100 H Blood Pressure Location Rt brachial Position Sitting Respiration 16 Pulse 88 Pulse Source Pulse Oximeter Temp 98.1 F Temp Source Oral Pulse Oximetry (%) 98 Oxygen Delivery Method Room Air Intake Visit Reasons: Annual PE Intake Note: Pt is here today for her PE: Last mammogram 07/16/24, bone denisty scan 07/16/24, colonoscopy 09/08/15 Allergies Surgivcal Tape Allergy (Unknown, Uncoded 10/18/24 09:48) Unknown Medication List - Last Reconciled 10/18/24 by Roxy Santiago MD alum-mag hydroxide-simeth 400-400-40 mg/5 mL (Liquid Antacid) 5 mL PO QID PRN cholecalciferol (vitamin D3) 50 mcg PO DAILY omeprazole mg PO sumatriptan succinate 100 mg PO DAILY PRN Tobacco use date assessed: 10/18/24 Fall risk assessment: No Falls in past year Last assessed Fall Risk: 10/18/24 Dental Screening Dental Screen Date: 10/18/24 Did you have a dental visit in the last 12 months?: Yes Did you have a dental problem in the last 6 months where you did not have access to dental care?: No Was dental information given to patient?: Patient has dentist HPI Annual PE HPI Details 64-year-old lady with history of osteope balbir in left femoral neck and left femur as noted on bone density scan done in 07/16/2024, has impaired fasting glucose, history of ovarian cancer s/p bilateral oophorectomy, migraine without aura, and insomnia, here today for physical exam. She is up-to-date with her screening mammogram and bone density scan both done 07/16/2024. Up-to-date with her screening colonoscopy done in 2015, with internal hemorrhoids seen, due again for repeat colonoscopy in 2025. It is noted that her blood pressure today was elevated. Patient states that her blood pressure has been fluctuating now for the last several weeks and she has been experiencing intermittent episodes of headache but no chest pain, no lightheadedness or shortness of breath reported.. [facility] Medical History (Updated 10/18/24 @ 22:43 by Roxy Santiago MD) Essential hypertension GERD (gastroesophageal reflux disease) Osteopenia of left femoral neck Hx of ovarian cancer Impaired fasting glucose Migraine without aura and without status migrainosus, not intractable Insomnia Surgical History History of total abdominal hysterectomy and bilateral salpingo-oophorectomy History of deviated nasal septum History of facial surgery History of tubal ligation History of appendectomy Family History Father HTN (hypertension) Myocardial infarct CAD (coronary artery disease) Substance use disorder Mother Osteoporosis PUD (peptic ulcer disease) Gallbladder cancer Leukemia Daughter Asthma Bronchiectasis Brother CLL (chronic lymphocytic leukemia) Sister Throat cancer Lung cancer Maternal Grandmother Diabetes mellitus Social History Housing: House Alcohol intake: never Patient Tobacco Use Status: Never used Tobacco e-Cigarette/Vaping Use: Never Used service: No Current occupational status: retired Cognitive needs: No Hearing needs: No Vision needs: Yes Questionnaire PHQ-9 Over the last 2 weeks, how often have you been bothered by any of the following problems? 1. Little interest or pleasure in doing things: not at all 2. Feeling down, depressed, or hopeless: not at all 3. Trouble falling or staying asleep, or sleeping too much: several days 4. Feeling tired or having little energy: not at all 5. Poor appetite or overeating: not at all 6. Feeling bad about yourself - or that you are a failure or have let yourself or your family down: not at all 7. Trouble concentrating on things, such as reading the newspaper or watching television: not at all 8. Moving or speaking so slowly that other people could have noticed. Or the opposite - being so fidgety or restless that you have been moving around a lot more than usual: not at all 9. Thoughts that you would be better off or of hurting yourself in some way: not at all Total score: 1 Depression Screening Interpretation: Negative Depression Screening Done: Yes 63178 - PHQ-9 Billing: Yes Source: Developed by Drs. Deepak Tobar, Yesica Roy, Darren Valdez and colleagues, with an educational dorys from [employer]. Thrive Questionnaire Date Thrive assessed: 10/11/24 I am a: Patient What is your living situation today?: I have a steady place to live Within the past 12 months, did the food you bought not last and you didn't have the money to get more?: Never true Within the past 12 months, did you worry whether your food would run out before you got money to buy more?: Never true Do you have trouble paying for medicines?: No Do you have trouble getting transportation to medical appointments?: No Do you have trouble paying your heating and electricity bill?: No Do you have trouble taking care of your child, family member or friend?: No Do you have trouble with day-to-day activities such as bathing, preparing meals, shopping, managing finances, etc.?: No Are you currently unemployed and looking for a job?: No Are you interested in more education?: No Please select the resources that you would like help with: None Currently or been in a relationship where the following occur: No concerns repor deshawn THRIVE Score: 0 AUDIT C Alcohol Use Questionnaire (AUDIT-C) 1. How often do you have a drink containing alcohol?: Never 3. How often do you have six or more drinks on one occasion?: Never Total Score: 0 RUIZ-7 AMB Questionnaire RUIZ-7 Date RUIZ - 7 assessed: 10/18/24 Feeling nervous, anxious, or on edge: 1 = Several days Not being able to stop or control worryin = Several days Worrying too much about different things: 1 = Several days Trouble relaxin = Not at all Being so restless that it is hard to sit still: 0 = Not at all Becoming easily annoyed or irritable: 0 = Not at all Feeling afraid as if something awful might happen: 0 = Not at all Total RUIZ-7 score (0-4 normal; 5-9 mild; 10-14 moderate; 15-21 severe): 3 Source: Developed by Drs. Deepak Tobar, Yesica Roy, Darren Valdez and colleagues, with an educational dorys from [employer]. RUIZ-7 Assessment Billing RUIZ-7 Assessment Tool: RUIZ-7 Assessment 26471 Review of Systems Const Denies fatigue, Denies fever(s) and Denies weakness Eyes Details: Up-to-date with her eye exam, goes to [facility] has an appointment scheduled for 12/2024 Denies change in vision ENT Details: So dental prophylaxis every 6 months Reports Normal hearing present, Denies dizziness, Denies nasal congestion, Denies nasal discharge and Denies sore throat Card Denies chest pain, Denies lightheadedness, Denies palpitations and Denies dyspnea Resp Denies chest congestion, Denies cough, Denies dyspnea and Denies wheezing GI Denies abdominal pain, Denies change in bowel habits and Denies heartburn Denies urinary frequency, Denies dysuria and Denies urinary urgency Musc Reports no additional complaints Skin/Breast Denies lesions and Denies rash Neuro Reports Normal hearing present, Denies dizziness, Denies Sensory deficit (Neuro) and Denies weakness Psych Reports as per HPI Endo Denies fatigue, Denies polydipsia, Denies polyuria and Denies palpitations Haroon/Lymph Denies easy bruising Aller/Immun Denies seasonal rhinorrhea and Denies wheezing Physical exam (Primary Care) Vital Signs: Last Vital Signs Temp 98.1 F 10/18/24 09:18 Pulse 88 10/18/24 09:18 Resp 16 10/18/24 09:18 BP 148/100 H 10/18/24 09:18 Pulse Ox 98 10/18/24 09:18 Oxygen Delivery Method Room Air 10/18/24 09:18 BMI result Body Mass Index 23.4 Tobacco/Smoking Status: Tobacco use Status Tobacco use date assessed 10/18/24 10/18/24 09:13 Patient Tobacco Use Status Never used Tobacco 10/18/24 09:13 e-Cigarette/Vaping Use Never Used 10/18/24 09:13 PHQ-9: PHQ-9 Score PHQ-9: Total score 1 10/18/24 22:28 Depression Screening Interpretation: Negative Thrive Assessment: Date of Thrive Assessment Date Thrive assessed 10/11/24 10/18/24 09:13 Currently or been in a relationship where the following occur: No concerns reported Const General: cooperative, healthy appearing, no acute distress and alert Orientation/consciousness: patient oriented x3 HENMT Head: Yes normocephalic Ears: external ears normal, TM's normal bilaterally and EAC's normal General nose exam: Normal external nose present, Normal nasal mucous membranes and turbinates present and No nasal discharge present Face and sinus: Yes face symmetric Mouth: Normal oral and palatal mucosa present, tongue normal and moist mucous membranes Eyes Conjunctivae: conjunctivae normal Sclerae: sclerae normal Pupils: Equal, round and reactive pupils present EOM: EOMs intact bilaterally Neck Neck: Yes full ROM and Yes no lymphadenopathy Thyroid: Thyroid normal Lymphatic: no lymphadenopathy noted Chest Chest palpation & inspection: normal inspection of the chest Breast/axilla palpation: normal palpation of the breasts Resp Effort & Inspection: normal respiratory effort and able to speak in complete sentences Auscultation: clear to auscultation bilaterally Cardio Jugular venous distension: no JVD Rate: regular rate Rhythm: regular rhythm Heart sounds: S1 normal heart sound present and S2 normal heart sound present GI Inspection: Yes normal to inspection Palpation (GI): Soft to palpation, nontender, no guarding and no masses Auscultation: normal bowel sounds General: Yes deferred Back/Spine/Pelvis Thoracic/Lumbar Spine: thoraco-lumbar ROM normal, straight leg raise negative bilaterally and No paraspinal muscle tenderness Skin General skin exam: no rashes or lesions noted Neuro General: patient oriented x3, gait normal, moves all extremities, no focal motor deficits and CN's II-XI intact bilaterally Cranial nerves: Yes Equal, round and reactive pupils present and Yes Normal hearing present Cognition (Neuro): normal cognition Gait exam (Neuro): Normal gait present Motor exam (neuro): 5/5 motor strength present throughout Sensory Exam: No Sensory deficit (Neuro) Extrem General: Yes normal to inspection, Yes full ROM, Yes no pedal edema and Yes normal gait Psych Appearance: grossly normal and well kempt Mental Status: mental status grossly normal Speech and movement: Normal speech and movement present Affect: normal affect Attitude: cooperative Thought process: Normal thought process present Thought content: Normal thought content present Coding Level of Care Code Est Pt Prev Care >65y(44100) Diagnoses Annual visit for general adult medical examination with abnormal findings Z00.01 Essential hypertension I10 Primary insomnia F51.01 Insomnia type: primary Migraine without aura and without status migrainosus, not intractable G43.009 Impaired fasting glucose R73.01 Osteopenia of left femoral neck M85.852 Additional Codes RUIZ-7 Assessment Billing - RUIZ-7 Assessment Tool: RUIZ-7 Assessment 42671 ([id number]) PHQ-9 - 19521 - PHQ-9 Billing: Yes ([id number]) Assessment & Plan Assessment & Plan (1) Annual visit for general adult medical examination with abnormal findings: Code(s): Z00.01 - Encounter for general adult medical examination with abnormal findings Plan: Will check appropriate labs. Recommended dental visit every 6 months and regular eye exams, at least every 2 years. Take adequate calcium in diet and vitamin-D 3 at 2000 IU per cap once a day, in addition to weight-bearing exercises to help maintain good muscle tone and weight control. Instructed to do self-breast exam, and continue with yearly mammogram, currently up-to-date. She is also up-to-date with her bone density screening, which showed mild osteopenia in left femoral neck and left femur. She is also up-to-date with her colon cancer screening and adult vaccinations (2) Essential hypertension: Code(s): I10 - Essential (primary) hypertension Category: Medical Plan: Fluctuating blood pressure readings noted on previous visits and blood pressure today is elevated. Will start her on losartan 50 mg per tablet to take once a day in a.m.. He initially try taking just half a tablet or 25 mg once a day with the 1st week and adjust accordingly. Reinforced importance of following a low-salt diet and getting regular exercise. (3) Insomnia: Code(s): G47.00 - Insomnia, unspecified Category: Medical Qualifiers: Insomnia type: primary Qualified Code(s): F51.01 - Primary insomnia Plan: Disrupted trial of doxepin 6 mg per tablet to take 1 tablet at bedtime at least 30 minutes before planning to go to sleep. Let me know if after 2 weeks no improvement of symptoms (4) Migraine without aura and without status migrainosus, not intractable: Code(s): G43.009 - Migraine without aura, not intractable, without status migrainosus Category: Medical Plan: Prescription refill sent for sumatriptan to take as needed (5) Impaired fasting glucose: Code(s): R73.01 - Impaired fasting glucose Category: Medical Plan: Your previous fasting blood sugars were elevated above 100 mg/dL. Impaired glucose metabolism increases the risk for developing diabetes mellitus type 2, as well as heart attack and stroke later on. Lifestyle changes that promotes weight loss, healthy eating habits, and regular exercise are important, and can prevent the progression to diabetes (6) Osteopenia of left femoral neck: Comment: Seen on bone density scan done July 05, 2022, with a T-score -1.5 Code(s): M85.852 - Other specified disorders of bone density and structure, left thigh Category: Medical Plan: Stressed importance of doing regular weight-bearing exercise, already goes to the gym almost on a daily basis and takes adequate calcium and vitamin-D 3 supplements. Orders: Orders Alanine Aminotransferase Today F51.01 - Primary insomnia, G43.009 - Migraine without aura, not intractable, without status migrainosus, M85.852 - Other specified disorders of bone density and structure, left thigh, R73.01 - Impaired fasting glucose, Z78.0 - Asymptomatic menopausal state, Z85.43 - Personal history of malignant neoplasm of ovary Basic Metabolic Panel Fasting Today F51.01 - Primary insomnia, G43.009 - Migraine without aura, not intractable, without status migrainosus, M85.852 - Other specified disorders of bone density and structure, left thigh, R73.01 - Impaired fasting glucose, Z78.0 - Asymptomatic menopausal state, Z85.43 - Personal history of malignant neoplasm of ovary Lipid Panel Today F51.01 - Primary insomnia, G43.009 - Migraine without aura, not intractable, without status migrainosus, M85.852 - Other specified disorders of bone density and structure, left thigh, R73.01 - Impaired fasting glucose, Z78.0 - Asymptomatic menopausal state, Z85.43 - Personal history of malignant neoplasm of ovary Aspartate Amino Transferase Today F51.01 - Primary insomnia, G43.009 - Migraine without aura, not intractable, without status migrainosus, M85.852 - Other specified disorders of bone density and structure, left thigh, R73.01 - Impaired fasting glucose, Z78.0 - Asymptomatic menopausal state, Z85.43 - Personal history of malignant neoplasm of ovary Vitamin D 25-OH Total Today F51.01 - Primary insomnia, G43.009 - Migraine without aura, not intractable, without status migrainosus, M85.852 - Other specified disorders of bone density and structure, left thigh, R73.01 - Impaired fasting glucose, Z78.0 - Asymptomatic menopausal state, Z85.43 - Personal history of malignant neoplasm of ovary Complete Blood Count Auto Diff Today F51.01 - Primary insomnia, G43.009 - Migraine without aura, not intractable, without status migrainosus, M85.852 - Other specified disorders of bone density and structure, left thigh, R73.01 - Impaired fasting glucose, Z78.0 - Asymptomatic menopausal state, Z85.43 - Personal history of malignant neoplasm of ovary Medications: New doxepin 6 mg PO BEDTIME PRN 30 tabs 0RF sleep losartan 50 mg PO DAILY 30 tabs 0RF Refilled sumatriptan succinate 100 mg PO DAILY PRN 20 tabs 4RF migraine
[2024-10-18 09:18] VITALS: BP 148/100; PULSE 88; RESP 16; TEMP 36.7; O2SAT 98; BMI 23.4
== END 2024-10-18 10:22 | disposition home or self-care (01) ==
PROVIDERS: PCP Internal Medicine; Visit Provider Internal Medicine
DX: Z00.01 Encounter for general adult medical examination with abnormal findings (principal); I10 Essential (primary) hypertension; F51.01 Primary insomnia; G43.009 Migraine without aura, not intractable, without status migrainosus; R73.01 Impaired fasting glucose; M85.852 Other specified disorders of bone density and structure, left thigh

== ENCOUNTER → 2024-10-18 08:19 | Outpatient (BNVA) | payer MEDICARE, BC, SELFPAY | PROVIDERS: PCP Internal Medicine; Visit Provider Internal Medicine | DX: Z00.01 Encounter for general adult medical examination with abnormal findings (principal); I10 Essential (primary) hypertension; F51.01 Primary insomnia; G43.009 Migraine without aura, not intractable, without status migrainosus; R73.01 Impaired fasting glucose; M85.852 Other specified disorders of bone density and structure, left thigh | CPT/HCPCS: 96127 ==

== ENCOUNTER 2024-10-22 06:04 | Outpatient (REF) | payer MEDICARE, BC, SELFPAY ==
[2024-10-22 10:06] LABS: MANUAL DIFF FLAG NO
[2024-10-22 10:11] LABS: Basophils Absolute Auto 0.1 X10*3/uL (0.0-0.2); Basophils Percent Auto 1.2 % (0-2); Eosinophils Absolute Auto 0.2 X10*3/uL (0.0-0.4); Eosinophils Percent Auto 5.7 % (0-4); Hematocrit 40.4 % (37.0-47.0); Hemoglobin 13.2 g/dl (12.0-16.0); Imm Gran Abs Auto 0.01 X10*3/uL (0.00-0.03); Imm Gran Pct Auto 0.2 % (0.0-0.4); Lymphocytes Absolute Auto 1.7 X10*3/uL (1.2-4.9); Lymphocytes Percent Auto 41.4 % (20-40); Mean Corpuscular HGB Conc 32.7 g/dl (31.0-35.0); Mean Corpuscular Hemoglobin 30.1 pg (27.0-33.0); Mean Corpuscular Volume 92.2 fL (80.0-98.0); Mean Platelet Volume 10.5 fL (9.4-12.3); Monocytes Absolute Auto 0.4 X10*3/uL (0.1-1.2); Monocytes Percent Auto 10.6 % (2-11); Neutrophils Absolute Auto 1.7 x10*3/uL (2.0-8.3); Neutrophils Percent Auto 40.9 % (45-73); Platelet Count 248 X10*3/uL (160-400); Red Blood Count 4.38 X10*6/uL (4.20-5.50); Red Cell Distribution Width 13.2 % (11.0-16.0); White Blood Count 4.1 X10*3/uL (4.8-10.8)
[2024-10-22 10:34] LABS: Alanine Aminotransferase 21 U/L (0-31); Anion Gap 11 (12-20); Aspartate Amino Transferase 24 U/L (5-31); Blood Urea Nitrogen 18 mg/dL (9-16); Calcium 9.5 mg/dL (8.4-10.2); Carbon Dioxide 25 mmol/L (22-29); Chloride 109 mmol/L (96-108); Cholesterol 186 mg/dL (<200); Estimated Glomerular Filt Rate > 60; Glucose Fasting 99 mg/dL (60-99); HDL Cholesterol 72 mg/dL (>40); LDL Cholesterol Calculated 99 mg/dL (<100); Sodium 141 mmol/L (135-145); Triglycerides 75 mg/dL (<150)
[2024-10-22 11:00] LABS: Vitamin D 25-OH Total 41.4 ng/mL (>30)
== END 2024-10-22 06:05 | disposition home or self-care (01) ==
LOC: HO.HMGCLDS 06:04
PROVIDERS: PCP Internal Medicine; Visit Provider Internal Medicine
DX: M85.852 Other specified disorders of bone density and structure, left thigh (principal); Z85.43 Personal history of malignant neoplasm of ovary; R73.01 Impaired fasting glucose; G43.009 Migraine without aura, not intractable, without status migrainosus; Z78.0 Asymptomatic menopausal state; F51.01 Primary insomnia; Z13.6 Encounter for screening for cardiovascular disorders
CPT/HCPCS: 36415; 80048; 80061; 82306; 84450; 84460; 85025

== ENCOUNTER → 2024-10-28 07:53 | Outpatient (BNVA) | payer MEDICARE, BC, SELFPAY | PROVIDERS: PCP Internal Medicine ==

== ENCOUNTER → 2024-11-04 07:52 | Outpatient (BNVA) | payer MEDICARE, BC, SELFPAY | PROVIDERS: PCP Internal Medicine ==

== ENCOUNTER → 2024-11-26 09:15 | Outpatient (BNVA) | payer MEDICARE, BC, SELFPAY | PROVIDERS: PCP Internal Medicine ==

== ENCOUNTER 2025-01-31 07:48 | Outpatient (AMB) | payer MEDICARE, BC, SELFPAY ==
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
--- NOTE | 2025-01-31 08:06 | A.OFFPC_ITS ---
Vital Signs 01/31/25 08:09 Height 5 ft 8 in Weight 164 lb 5 oz BMI 25.0 BP 142/90 H Blood Pressure Location Rt brachial Position Sitting Respiration 20 Pulse 83 Pulse Source Pulse Oximeter Temp 98.4 F Temp Source Oral Pulse Oximetry (%) 98 Oxygen Delivery Method Room Air Intake Visit Reasons: 3m follow up Intake Note: Pt 3 m follow up Allergies Surgivcal Tape Allergy (Unknown, Uncoded 10/18/24 09:48) Unknown Medication List - Last Reconciled 02/01/25 by Roxy Santiago MD alum-mag hydroxide-simeth 400-400-40 mg/5 mL (Liquid Antacid) 5 mL PO QID PRN cholecalciferol (vitamin D3) 50 mcg PO DAILY doxepin 6 mg PO BEDTIME PRN eszopiclone 1 mg PO BEDTIME omeprazole mg PO sumatriptan succinate 100 mg PO DAILY PRN Tobacco use date assessed: 01/31/25 Fall risk assessment: No Falls in past year Last assessed Fall Risk: 01/31/25 Dental Screening Dental Screen Date: 01/31/25 Did you have a dental visit in the last 12 months?: Yes Did you have a dental problem in the last 6 months where you did not have access to dental care?: No Was dental information given to patient?: Patient has dentist HPI 3m follow up HPI Details - The patient is a 64-year-old female pr esenting with concerns of fluctuating blood pressure, insomnia, and generalized anxiety. Home blood pressure logs indicate normal levels (highest being 138/72 mmHg), contrasted by elevated levels recorded during office visits. - Sleep disturbances are significant, wi th difficulty falling asleep, interrupted sleep cycles, and frequent nocturnal awakenings. The patient has tried Doxepin and Topiramate, with limited success and adverse effects from the latter. Lorazepam has been moderately effective in improving sleep. [facility] Medical History (Updated 01/31/25 @ 08:35 by Roxy Santiago MD) Labile hypertension Essential hypertension GERD (gastroesophageal reflux disease) Osteopenia of left femoral neck Hx of ovarian cancer Impaired fasting glucose Migraine without aura and without status migrainosus, not intractable Insomnia Surgical History History of total abdominal hysterectomy and bilateral salpingo-oophorectomy History of deviated nasal septum History of facial surgery History of tubal ligation History of appendectomy Family History Father HTN (hypertension) Myocardial infarct CAD (coronary artery disease) Substance use disorder Mother Osteoporosis PUD (peptic ulcer disease) Gallbladder cancer Leukemia Daughter Asthma Bronchiectasis Brother CLL (chronic lymphocytic leukemia) Sister Throat cancer Lung cancer Maternal Grandmother Diabetes mellitus Social History Housing: House Alcohol intake: never Patient Tobacco Use Status: Never used Tobacco e-Cigarette/Vaping Use: Never Used service: No Current occupational status: retired Cognitive needs: No Hearing needs: No Vision needs: Yes Questionnaire Thrive Questionnaire Date Thrive assessed: 10/11/24 I am a: Patient What is your living situation today?: I have a steady place to live Within the past 12 months, did the food you bought not last and you didn't have the money to get more?: Never true Within the past 12 months, did you worry whether your food would run out before you got money to buy more?: Never true Do you have trouble paying for medicines?: No Do you have trouble getting transportation to medical appointments?: No Do you have trouble paying your heating and electricity bill?: No Do you have trouble taking care of your child, family member or friend?: No Do you have trouble with day-to-day activities such as bathing, preparing meals, shopping, managing finances, etc.?: No Are you currently unemployed and looking for a job?: No Are you interested in more education?: No Please select the resources that you would like help with: None Currently or been in a relationship where the following occur: No concerns reported THRIVE Score: 0 RUIZ-7 AMB Questionnaire RUIZ-7 Date RUIZ - 7 assessed: 10/18/24 Source: Developed by Drs. Deepak Tobar, Yesica Roy, Darren Valdez and colleagues, with an educational dorys from [employer]. Review of Systems Const Reports as per HPI, Denies fatigue, Denies fever(s) and Denies weakness Eyes Denies change in vision ENT Reports Normal hearing present Card Denies chest pain, Denies lightheadedness, Denies palpitations and Denies dyspnea Resp Denies chest congestion, Denies cough, Denies dyspnea and Denies wheezing Denies urinary frequency, Denies dysuria and Denies urinary urgency Musc Reports no additional complaints Skin/Breast Denies lesions and Denies rash Neuro Reports Normal hearing present, Denies Sensory deficit (Neuro) and Denies weakness Psych Reports as per HPI Endo Denies fatigue, Denies polydipsia, Denies polyuria and Denies palpitations Haroon/Lymph Denies easy bruising Aller/Immun Denies seasonal rhinorrhea and Denies wheezing Physical exam (Primary Care) Vital Signs: Last Vital Signs Temp 98.4 F 01/31/25 08:09 Pulse 83 01/31/25 08:09 Resp 20 01/31/25 08:09 BP 142/90 H 01/31/25 08:09 Pulse Ox 98 01/31/25 08:09 Oxygen Delivery Method Room Air 01/31/25 08:09 BMI result Body Mass Index 25.0 Tobacco/Smoking Status: Tobacco use Status Tobacco use date assessed 01/31/25 01/31/25 08:16 Patient Tobacco Use Status Never used Tobacco 01/31/25 08:16 e-Cigarette/Vaping Use Never Used 01/31/25 08:16 Thrive Assessment: Date of Thrive Assessment Date Thrive assessed 10/11/24 01/31/25 08:16 Currently or been in a relationship where the following occur: No concerns reported Const General: healthy appearing, no acute distress and alert Orientation/consciousness: patient oriented x3 HENMT Head: Yes normocephalic Ears: external ears normal General nose exam: Normal external nose present Face and sinus: Yes face symmetric Mouth: Normal oral and palatal mucosa present and moist mucous membranes Eyes Conjunctivae: conjunctivae normal Sclerae: sclerae normal Pupils: Equal, round and reactive pupils present EOM: EOMs intact bilaterally Neck Neck: Yes full ROM and Yes no lymphadenopathy Thyroid: Thyroid normal Lymphatic: no lymphadenopathy noted Resp Effort & Inspection: normal respiratory effort and able to speak in complete sentences Auscultation: clear to auscultation bilaterally Cardio Jugular venous distension: no JVD Rate: regular rate Rhythm: regular rhythm Heart sounds: S1 normal heart sound present and S2 normal heart sound present GI Inspection: Yes normal to inspection Palpation (GI): Soft to palpation, nontender, no guarding and no masses Auscultation: normal bowel sounds General: Yes deferred Neuro General: patient oriented x3, gait normal, moves all extremities, no focal motor deficits and CN's II-XI intact bilaterally Cranial nerves: Yes Equal, round and reactive pupils present and Yes Normal hearing present Cognition (Neuro): normal cognition Gait exam (Neuro): Normal gait present Motor exam (neuro): 5/5 motor strength present throughout Sensory Exam: No Sensory deficit (Neuro) Extrem General: Yes normal to inspection, Yes full ROM, Yes no pedal edema and Yes normal gait Psych Appearance: grossly normal and well kempt Mental Status: mental status grossly normal Speech and movement: Normal speech and movement present Affect: normal affect Attitude: cooperative Thought process: Normal thought process present Thought content: Normal thought content present Coding Level of Care Code Est Pt Level 4 (15931) Diagnoses Labile hypertension R09.89 Primary insomnia F51.01 Insomnia type: primary Assessment & Plan Assessment & Plan (1) Labile hypertension: Code(s): R09.89 - Other specified symptoms and signs involving the circulatory and respiratory systems Category: Medical Plan: I will proceed with the 24-hour ambulatory blood pressure monitoring to assess for white coat hypertension, goes importance of doing relaxation techniques, following a low-salt diet and getting regular exercise. She will transition to low dose Eszopiclone for her insomnia, while using Lorazepam sparingly and utilizing Tylenol Arthritis for shoulder discomforA potential sleep clinic referral is considered if sleep disturbances persist despite changes. Patient was informed and verbally consented to the use of an ambient scribe for clinic note documentation during this visit. (2) Insomnia: Code(s): G47.00 - Insomnia, unspecified Category: Medical Qualifiers: Insomnia type: primary Qualified Code(s): F51.01 - Primary insomnia Plan: Will try her on low dose Eszopiclone for her insomnia, A potential sleep clinic referral is considered if sleep disturbances persist despite changes. Orders: Referrals Nephrology Referral R09.89 - Other specified symptoms and signs involving the circulatory and respiratory systems Medications: New eszopiclone 1 mg PO BEDTIME 30 tabs 0RF
[2025-01-31 08:09] VITALS: BP 142/90; PULSE 83; RESP 20; TEMP 36.9; O2SAT 98; BMI 25.0
== END 2025-01-31 08:44 | disposition home or self-care (01) ==
LOC: HO.HMCC 07:49
PROVIDERS: PCP Internal Medicine; Visit Provider Internal Medicine
DX: R09.89 Other specified symptoms and signs involving the circulatory and respiratory systems (principal); F51.01 Primary insomnia

== ENCOUNTER → 2025-01-31 07:48 | Outpatient (BNVA) | payer MEDICARE, BC, SELFPAY | PROVIDERS: PCP Internal Medicine; Visit Provider Internal Medicine | DX: R09.89 Other specified symptoms and signs involving the circulatory and respiratory systems (principal); F51.01 Primary insomnia | CPT/HCPCS: 99212 ==

== ENCOUNTER 2025-02-07 09:18 | Outpatient (AMB) | payer MEDICARE, BC, SELFPAY ==
[2025-02-07 09:25] VITALS: BP 152/100; PULSE 77; O2SAT 98
--- NOTE | 2025-02-07 09:25 | HO.NEPHOV ---
Vital Signs 02/07/25 09:25 Height 5 ft 8 in BP 152/100 H Blood Pressure Location Lt brachial Position Sitting Pulse 77 Pulse Source Pulse Oximeter Pulse Oximetry (%) 98 Oxygen Delivery Method Room Air Intake Visit Reasons: INP: HTN- 24 HR BPM-Conf Intake Note: Patient was on losartan,propranolol took both medication for about 1 month only. Ham Sawyer Required: No Accompanied by: Spouse Allergies Surgivcal Tape Allergy (Unknown, Uncoded 10/18/24 09:48) Unknown Do you need a note to return to daycare/school/sports/work: No HPI Comments Details: 64-year-old lady with past medical history of hypertension, insomnia, anxiety disorder, migraine disorder, GERD is referred to the nephrology clinic by the primary care due to fluctuating blood pressures. Losartan and proprolol since Oct and stopped as the blood pressures were normal. Currently she is on no medications, and her blood pressures at home is between 100-120mmHg. But since her office blood pressures readings are higher she is being referred by her PCP for 24 hours blood pressures monitoring. [facility] Medical History Labile hypertension Essential hypertension GERD (gastroesophageal reflux disease) Osteopenia of left femoral neck Hx of ovarian cancer Impaired fasting glucose Migraine without aura and without status migrainosus, not intractable Insomnia Surgical History History of total abdominal hysterectomy and bilateral salpingo-oophorectomy History of deviated nasal septum History of facial surgery History of tubal ligation History of appendectomy Family History Father HTN (hypertension) Myocardial infarct CAD (coronary artery disease) Substance use disorder Mother Osteoporosis PUD (peptic ulcer disease) Gallbladder cancer Leukemia Daughter Asthma Bronchiectasis Brother CLL (chronic lymphocytic leukemia) Sister Throat cancer Lung cancer Maternal Grandmother Diabetes mellitus Social History Housing: House Alcohol intake: never Patient Tobacco Use Status: Never used Tobacco e-Cigarette/Vaping Use: Never Used service: No Current occupational status: retired Cognitive needs: No Hearing needs: No Vision needs: Yes Review of Systems Const Details: Const Denies body aches, Denies chills, Denies excessive sweating and Denies fatigue Eyes Denies blurry vision and Denies change in vision ENT Denies bleeding gums and Denies change in voice Card Denies chest pain and Denies leg ulcers Resp Denies cough and Denies excessive phlegm production GI Denies abdominal pain and Denies bloating Denies hematuria, Denies urinary frequency and Denies difficulty voiding Musc Denies abnormal gait Neuro Denies Neuro-related abnormal movements, Denies abnormal gait and Denies behavioral changes Psych Denies behavioral changes and Denies change in appetite Endo Denies change in body appearance, Denies cold intolerance, Denies excessive sweating and Denies fatigue Physical Exam Vital Signs: Last Vital Signs Pulse 77 02/07/25 09:25 BP 152/100 H 02/07/25 09:25 Pulse Ox 98 02/07/25 09:25 Oxygen Delivery Method Room Air 02/07/25 09:25 General: Not in any acute distress, comfortable, sitting on the chair Nutritional Appearance: well nourished and overweight Eyes: appearance normal, both eyes and all related structures; Alignment and Position: alignment normal and position normal Neck: No lymphadenopathy, no thyromegaly Resp: bilateral air entry equal, no added sounds present Cardio: Regular rate, regular rhythm; Heart sounds: S1 normal heart sound present and S2 normal heart sound present, no edema GI: soft, nontender, no guarding, no hepatosplenomegaly : bladder normal to inspection, bladder normal to palpation, no renal angle tenderness Skin: no rashes or lesions noted and elasticity normal Neuro: oriented to person, oriented to place, oriented to time and moves all extremities Results Reviewed Nephrology Results: Hgb 13.2 g/dl (12.0-16.0) 10/22/24 WBC 4.1 X10*3/uL (4.8-10.8) L 10/22/24 Plt Count 248 X10*3/uL (160-400) 10/22/24 Sodium 141 mmol/L (135-145) 10/22/24 Potassium 4.0 mmol/L (3.3-5.1) 10/22/24 Chloride 109 mmol/L (96-108) H 10/22/24 Carbon Dioxide 25 mmol/L (22-29) 10/22/24 BUN 18 mg/dL (9-16) H 10/22/24 Creatinine 0.66 mg/dL (0.5-1.4) 10/22/24 Calcium 9.5 mg/dL (8.4-10.2) 10/22/24 Assessment & Plan Assessment & Plan (1) Essential hypertension: Code(s): I10 - Essential (primary) hypertension Category: Medical (2) Labile hypertension: Code(s): R09.89 - Other specified symptoms and signs involving the circulatory and respiratory systems Category: Medical Plan Patient regularly checks his blood pressure at his home and is usually around: 100-120mmHG , at office is usually around: 130-150mmhg Currently she is on no medications. She is a nonsmoker, no CAD, no stroke, lipids are under control, nondiabetic, family history of coronary artery disease. Her relative risk reduction of major cardiovascular events is low 3.3% over next 10 years. plan: - target blood pressures <140/90 - no indications for other work up - will do 24 hour ambulatory blood pressures monitoring and will see her again tomorrow Orders: Orders AMB 24 HR B/P Monitor PLACEMENT Today I10 - Essential (primary) hypertension, R09.89 - Other specified symptoms and signs involving the circulatory and respiratory systems Coding Level of Care Code New Pt Level 3 (01981) Diagnoses Essential hypertension I10 Labile hypertension R09.89
--- OUTSIDE RECORDS SUMMARY | 2025-02-07 09:44 | XMS_ITS | Patient Health Record ---
Author Organization [facility] Address [address] [place] [address] Care Team Providers Care Food Service Worker Name Role Phone Jack CASTANO, Roxy Primary Care Provider Dwight Seth Jr Unavailable Allergies Allergen (clinical drug ingredient) Drug/Non Drug [...] Problem Status W/U Status Risk Notes Problem [id number] Epigastric pain (R10.13) Active confirmed Problem 356007017 Gastroesophageal reflux disease without esophagitis (K21.9) Active confirmed Problem [id number] Dysphagia, unspecified type (R13.10) Active confirmed Plan Of Treatment Future Test Test Name Order Date COLONOSCOPY 05/12/2015 Insurance Providers Payer Name Payer Address Payer Phone Subscriber Number Group Number Insured Name Patient Relationship to Insured Coverage Start Date Coverage End Date [facility] [address] [place], [place] [id number] [id number] WU Self - patient is the [...]
== END 2025-02-07 10:26 | disposition home or self-care (01) ==
LOC: HO.HKAS 09:19
PROVIDERS: PCP Internal Medicine; Visit Provider Internal Medicine Critical Care Medicine
DX: I10 Essential (primary) hypertension (principal); R09.89 Other specified symptoms and signs involving the circulatory and respiratory systems
CPT/HCPCS: 99203

== ENCOUNTER → 2025-02-07 09:18 | Outpatient (BNVA) | payer MEDICARE, BC, SELFPAY | PROVIDERS: PCP Internal Medicine; Visit Provider Internal Medicine Critical Care Medicine | DX: I10 Essential (primary) hypertension (principal); R09.89 Other specified symptoms and signs involving the circulatory and respiratory systems | CPT/HCPCS: 99202 ==

== ENCOUNTER → 2025-02-08 09:46 | Outpatient (BNVA) | payer MEDICARE, BC, SELFPAY | PROVIDERS: PCP Internal Medicine; Visit Provider Internal Medicine Critical Care Medicine | DX: Z46.89 Encounter for fitting and adjustment of other specified devices (principal) | CPT/HCPCS: 93786; 93788 ==

== ENCOUNTER 2025-03-16 08:14 | Outpatient (AMB) | payer MEDICARE, BC, SELFPAY ==
--- OUTSIDE RECORDS SUMMARY | 2025-03-16 08:16 | XMS_ITS | Patient Health Record ---
Author Organization [facility] Address [address] [place] [address] Care Team Providers Care Hot Top Liner Name Role Phone Jack CASTANO, Roxy Primary Care Provider Dwight Seth Jr Unavailable [phone] Allergies Allergen (clinical drug ingredient) Drug/Non Drug [...] Problem Status W/U Status Risk Notes Problem [id number] Epigastric pain (R10.13) Active confirmed Problem [id number] Gastroesophageal reflux disease without esophagitis (K21.9) Active confirmed Problem 78997989 Dysphagia, unspecified type (R13.10) Active confirmed Plan Of Treatment Future Test Test Name Order Date COLONOSCOPY 05/12/2015 Insurance Providers Payer Name Payer Address Payer Phone Subscriber Number Group Number Insured Name Patient Relationship to Insured Coverage Start Date Coverage End Date [facility] [address] [place], [place] [id number] [phone] [id number] WU Self - patient is the [...]
[2025-03-16 08:36] VITALS: BP 128/88; PULSE 81; O2SAT 98; BMI 23.9
--- NOTE | 2025-03-16 08:36 | HO.NEPHOV_ITS ---
Vital Signs 03/16/25 08:36 Height 5 ft 8 in Weight 157 lb BMI 23.9 BP 128/88 Blood Pressure Location Lt brachial Position Sitting Pulse 81 Pulse Source Pulse Oximeter Pulse Oximetry (%) 98 Oxygen Delivery Method Room Air Intake Visit Reasons: 1 mo follow up-[facility] Logistics Account Manager Required: No Accompanied by: Self / Same As Patient Allergies Surgivcal Tape Allergy (Unknown, Uncoded 10/18/24 09:48) Unknown HPI Comments Details: 64-year-old lady with past medical history of hypertension, insomnia, anxiety disorder, migraine disorder, GERD is referred to the nephrology clinic by the primary care due to fluctuating blood pressures. Losartan and proprolol since Oct and stopped as the blood pressures were normal. Due to 24 hour blood pressure monitoring which showed her blood pressures were slightly on the higher side between 08:00 to 14:00, she said she is also str essed during this time. Started her on small dose of clonidine 0.1 mg in the morning and she is tolerating well. [facility] Medical History Labile hypertension Essential hypertension GERD (gastroesophageal reflux disease) Osteopenia of left femoral neck Hx of ovarian cancer Impaired fasting glucose Migraine without aura and without status migrainosus, not intractable Insomnia Surgical History History of total abdominal hysterectomy and bilateral salpingo-oophorectomy History of deviated nasal septum History of facial surgery History of tubal ligation History of appendectomy Family History Father HTN (hypertension) Myocardial infarct CAD (coronary artery disease) Substance use disorder Mother Osteoporosis PUD (peptic ulcer disease) Gallbladder cancer Leukemia Daughter Asthma Bronchiectasis Brother CLL (chronic lymphocytic leukemia) Sister Throat cancer Lung cancer Maternal Grandmother Diabetes mellitus Social History Housing: House Alcohol intake: never Patient Tobacco Use Status: Never used Tobacco e-Cigarette/Vaping Use: Never Used service: No Current occupational status: retired Cognitive needs: No Hearing needs: No Vision needs: Yes Review of Systems Const Details: Const Denies body aches, Denies chills, Denies excessive sweating and Denies fatigue Eyes Denies blurry vision and Denies change in vision ENT Denies bleeding gums and Denies change in voice Card Denies chest pain and Denies leg ulcers Resp Denies cough and Denies shortness of breath GI Denies abdominal pain and Denies bloating Denies urinary frequency and Denies difficulty voiding Musc Denies abnormal gait Neuro Denies Neuro-related abnormal movements, Denies abnormal gait and Denies behavioral changes Psych Denies behavioral changes and Denies change in appetite Endo Denies change in body appearance, Denies cold intolerance Physical Exam Vital Signs: Last Vital Signs Pulse 81 03/16/25 08:36 BP 128/88 03/16/25 08:36 Pulse Ox 98 03/16/25 08:36 Oxygen Delivery Method Room Air 03/16/25 08:36 BMI result Body Mass Index 23.9 General: Not in any acute distress, looks slightly stressed Nutritional Appearance: well nourished and overweight Eyes: appearance normal, both eyes and all related structures; Alignment and Position: alignment normal and position normal Neck: No lymphadenopathy, no thyromegaly Resp: bilateral air entry equal, no added sounds present Cardio: Regular rate, regular rhythm; Heart sounds: S1 normal heart sound present and S2 normal heart sound present GI: soft, nontender, no guarding, no hepatosplenomegaly : bladder normal to inspection, bladder normal to palpation, no renal angle tenderness Skin: no rashes or lesions noted and elasticity normal Neuro: oriented to person, oriented to place, oriented to time and moves all extremities Assessment & Plan Assessment & Plan (1) Essential hypertension: Code(s): I10 - Essential (primary) hypertension Category: Medical (2) Labile hypertension: Code(s): R09.89 - Other specified symptoms and signs involving the circulatory and respiratory systems Category: Medical Plan 64-year-old lady with past medical history of hypertension, insomnia, anxiety disorder, migraine disorder, GERD is referred to the nephrology clinic by the primary care due to fluctuating blood pressures. Losartan and proprolol since Oct and stopped as the blood pressures were normal. Upon 24 hour blood pressures. Her blood pressures are well-controlled in the afternoons evening going through the night. In the morning patient wakes up at 6, is active with her exercises including cycling, weightlifting and also garden work when her blood pressures are on the higher side. She also states she has a little bit stressed during the day and comes down by late afternoon. She is on clonidine 0.1 mg in the morning and tolerating well without any side effects. We will see her back in the winter months. Coding Level of Care Code Est Pt Level 3 (22995) Diagnoses Essential hypertension I10 Labile hypertension R09.89
== END 2025-03-16 08:57 | disposition home or self-care (01) ==
LOC: HO.HKAS 08:14
PROVIDERS: PCP Internal Medicine; Visit Provider Internal Medicine Critical Care Medicine
DX: I10 Essential (primary) hypertension (principal); R09.89 Other specified symptoms and signs involving the circulatory and respiratory systems
CPT/HCPCS: 99213

== ENCOUNTER → 2025-03-16 08:14 | Outpatient (BNVA) | payer MEDICARE, BC, SELFPAY | PROVIDERS: PCP Internal Medicine; Visit Provider Internal Medicine Critical Care Medicine | DX: I10 Essential (primary) hypertension (principal); R09.89 Other specified symptoms and signs involving the circulatory and respiratory systems | CPT/HCPCS: 99212 ==

== ENCOUNTER 2025-07-25 07:27 | Outpatient (REF) | payer MEDICARE, BC, SELFPAY ==
--- NOTE | ~2025-07-25 | MM_ITS ---
EXAMINATION: MM SCREENING DIGITAL BREAST TOMOSYNTHESIS, BILATERAL CLINICAL INFORMATION: Screening. Asymptomatic. COMPARISON: Mammography: Comparison is made with available priors TECHNIQUE: Digital breast mammography with tomosynthesis is performed in both the craniocaudal and mediolateral oblique views along with computer-aided detection (CAD). FINDINGS: The breasts are heterogeneously dense, which may obscure small masses. There are no significant masses, abnormal calcifications, or other abnormalities. MM/MM tomosynthesis screening BI IMPRESSION: No mammographic evidence of malignancy. ASSESSMENT: BI-RADS Category 1: Negative RECOMMENDATION: Routine annual mammography screening. 1 year F/U This examination should not preclude the clinical evaluation of a suspicious palpable abnormality. This patient's information was entered into a reminder system with a target due date for their next mammogram. Electronically signed by: Kelly Voss DO 07/26/2025 03:32 PM [facility]
--- OUTSIDE RECORDS SUMMARY | 2025-07-25 07:30 | XMS_ITS | Patient Health Record ---
Author Organization [facility] Address [address] [place] [address] Care Team Providers Care Sheet Metal Technician Name Role Phone Jack CASTANO, Roxy Primary Care Provider Dwight Seth Jr Unavailable [phone] Allergies Allergen (clinical drug ingredient) Drug/Non Drug Allergy documented on EMR Reaction Allergy Type Onset Date Status Adhesive tape Allergy Active Reason For Referral No Information Medications Medication SIG (Take, Route, Frequency, Duration) Notes Start Date End Date Status Omeprazole 20 MG Tablet Delayed Release 1 tablet 30 minutes before morning meal Orally Once a day; Duration: 30 days 03/14/2021 Active Aleve 220 MG Capsule 1 tablet with food or milk as needed Orally prn Active SUMAtriptan Succinate 100 MG Tablet TAKE 1 TABLET BY MOUTH DAILY NEEDED FOR MIGRAINE Oral; Duration: 7 Active Immunizations Vaccine Route Administration Date Status Comme nts Influenza Unknown 06/01/2020 Administered Social History Social History Drugs/Alcohol: Social Info Question Answer Notes Alcohol Screen Did you have a drink containing alcohol in the past year? No Points 0 Interpretation Negative Additional Details Category Social Info Options Details Miscellaneous: Marital status: Occupation: retired Problems Problem Type SNOMED Code ICD Code Onset Dates Problem Status W/U Status Risk Notes Problem Epigastric pain (95549512) Epigastric pain (R10.13) Active confirmed Problem Gastroesophageal reflux disease without esophagitis (895881202) Gastroesophageal reflux disease without esophagitis (K21.9) Active confirmed Problem Dysphagia (13333997) Dysphagia, unspecified type (R13.10) Active confirmed Plan Of Treatment Future Test Test Name Order Date COLONOSCOPY 05/12/2015 Insurance Providers Payer Name Payer Address Payer Phone Subscriber Number Group Number Insured Name Patient Relationship to Insured Coverage Start Date Coverage End Date [facility] [address] [place], [place] [id number] WU Self - patient is the [...]
== END 2025-07-25 07:28 | disposition home or self-care (01) ==
LOC: HO.MAMMO 07:27
PROVIDERS: PCP Internal Medicine; Visit Provider Internal Medicine
DX: Z12.31 Encounter for screening mammogram for malignant neoplasm of breast (principal)
CPT/HCPCS: 77063; 77067

== ENCOUNTER → 2025-07-25 07:30 | Outpatient (BNV) | payer MEDICARE, BC, SELFPAY | PROVIDERS: PCP Internal Medicine; Visit Provider Internal Medicine | DX: Z12.31 Encounter for screening mammogram for malignant neoplasm of breast (principal) | CPT/HCPCS: 77063; 77067 ==